=== PATIENT | female | born 1930 | race Caucasian/White ===

== ENCOUNTER 2017-02-11 10:55 | Outpatient (CLI) | payer MEDICARE, BC | END 2017-02-11 10:56 | disposition home or self-care (01) | LOC: DI 10:55 | PROVIDERS: ATTEND Physician Assistant | DX: R05 Cough (principal); I51.7 Cardiomegaly; I08.1 Rheumatic disorders of both mitral and tricuspid valves; Z95.3 Presence of xenogenic heart valve | CPT/HCPCS: 93306 ==

== ENCOUNTER 2017-04-01 10:19 | Outpatient (CLI) | payer MEDICARE, BC ==
--- NOTE | 2017-04-01 15:30 | XRAY Report ---
CERVICAL SPINE THREE VIEWS: 04/01/2017 CLINICAL HISTORY: Neck pain. COMPARISON: None. FINDINGS: The patient is status post sternotomy. Mid cervical levoscoliosis. Minimal anterolisthesis of C3 on C4. The vertebral bodies are otherwise unremarkable in height and alignment. There is advanced disk space narrowing at C4-5, C5-6 and C6-7. Scattered mild degenerative facet join t arthropathy is present. No prevertebral soft tissue swelling. 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 CERVICAL SPINAL STENOSIS MAY BE PRESENT BUT COULD BE BEST ASSESSED BY MRI. JOB #: [id number] JOB #:[id number]
== END 2017-04-01 10:20 | disposition home or self-care (01) ==
LOC: DI.S 10:19
PROVIDERS: ATTEND Nurse Practitioner Family
DX: M50.321 Other cervical disc degeneration at C4-C5 level (principal)
CPT/HCPCS: 72040